=== PATIENT | female | born 2000 | race Caucasian/White ===

== ENCOUNTER 2020-04-22 20:38 | Emergency (ER) | payer OTHER ==
[2020-04-22] MEDS ORDERED: ACETAMINOPHEN 325 MG TABLET PO ONE (20:53)
--- NOTE | 2020-04-22 20:55 | ER Document Report ---
ED Medical Screen (RME) - General Chief Complaint: Foot Injury Stated Complaint: RIGHT FOOT LACERATION Time Seen by Provider: 04/22/20 20:47 Mode of Arrival: Ambulatory Information source: Patient Notes: 20-year-old female presented to ED for 3 cm laceration to the posterior ankle. She states a piece of metal in the door snapped up and cut her posterior ankle at 655 tonight. She states her last menstrual. Started on 04/17/2020. Her last tetanus was 7 years ago. She does not smoke she occasionally drinks does not use any drugs. She does have a history of a fractured arm in the past and asthma. She states her pain is sharp and a level 2 out of 5. She is alert oriented respirations regular nonlabored speaking in full sentences. She did very requested Tylenol and I did give her Tylenol. I have greeted and performed a rapid initial assessment of this patient. A comprehensive ED assessment and evaluation of the patient, analysis of test results and completion of medical decision making process will be conducted by an additional ED providers. Physical Exam - Vital signs Vitals: Temp Pulse Resp BP Pulse Ox 98.8 F 82 15 145/77 H 99 04/22/20 20:42 04/22/20 20:42 04/22/20 20:42 04/22/20 20:42 04/22/20 20:42 Course - Vital Signs Vital signs: Temp Pulse Resp BP Pulse Ox 98.8 F 82 15 145/77 H 99 04/22/20 20:42 04/22/20 20:42 04/22/20 20:42 04/22/20 20:42 04/22/20 20:42
--- NOTE | 2020-04-22 22:10 | RADIOLOGY REPORT (SQ) ---
EXAM DESCRIPTION: XR ANKLE 3 OR MORE VIEWS COMPLETED DATE/TME: 04/22/2020 20:52 CLINICAL HISTORY: 20 years, Female, Laceration posterior ankle EXAM DESCRIPTION: CLINICAL HISTORY: Laceration posterior ankle COMPARISON: None FINDINGS: 3 view(s) submitted. Findings are concerning for fracture of the cuboid bone, comminuted, best seen on the lateral view. No other fracture or dislocation is identified. Bone marrow attenuation is unremarkable. No radiopaque foreign body is identified. IMPRESSION: Probable cuboid fracture. Follow-up is recommended.
[2020-04-23] MEDS ORDERED: DIPH/PERTUSS(ACELL)/TETANUS VAC/PF 0.5 ML SYR (>=10YO) IM ONE (00:53)
[2020-04-23] MEDS ORDERED: LIDOCAINE 1%/EPINEPHRINE INJ 20 ML VIAL INJ ONE (01:00)
--- NOTE | 2020-04-23 01:00 | ER Document Report ---
HPI - HPI Time Seen by Provider: 04/22/20 20:47 Pain Level: 2 Context: Patient is a 20-year-old female that comes emergency department for chief complaint of a laceration to the right posterior ankle. She states that she was struck by a swinging door, she states there was a metal part on the door which was sticking up and it caught her in the ankle causing a laceration and bleeding. She denies any other injuries. She states the area is sore when she walks but she denies any other complaints. She denies any other injury. Last tetanus was 7 years ago. She just completed her last menstrual cycle. She denies any medical problems, only past medical history reported is orthopedic surgery on her arm. - REPRODUCTIVE LMP: 04/17/20 - DERM Skin Color: Normal Past Medical History - General Information source: Patient - Social History Smoking Status: Never Smoker Frequency of alcohol use: None Drug Abuse: None Lives with: Family Family History: Reviewed & Not Pertinent Pulmonary Medical History: Reports: Hx Asthma - Immunizations Immunizations up to date: No Hx Diphtheria, Pertussis, Tetanus Vaccination: Yes Vertical Provider Document - CONSTITUTIONAL General Appearance: WD/WN, No Apparent Distress - HEENT HEENT: Atraumatic, Normocephalic - NECK Neck: Normal Inspection - RESPIRATORY Respiratory: Breath Sounds Normal, No Respiratory Distress - CARDIOVASCULAR Cardiovascular: Regular Rate, Regular Rhythm - GI/ABDOMEN Gastrointestinal: Abdomen Soft, Abdomen Non-Tender. negative: Abdomen Tender - BACK Back: Normal Inspection - MUSCULOSKELETAL/EXTREMETIES Musculoskeletal/Extremeties: MAEW, FROM, Tender - There is a partial-thickness vertical laceration just adjacent to the Achilles area laterally on the right posterior ankle. This is approximately 3 cm in length. There is no surrounding swelling. Normal Power test, normal range of motion of the ankle, normal ambulation, normal capillary refill and sensation in the toes, normal dorsalis pedis. Unremarkable lower extremity otherwise. - NEURO Level of Consciousness: Awake, Alert, Appropriate Motor/Sensory: No Motor Deficit, No Sensory Deficit - DERM Integumentary: Warm, Dry, No Rash Course - Re-evaluation Re-evalutation: Patient with a partial-thickness laceration with no deficits, exam does not indicate injury of the Achilles or any concerning findings. X-ray shows possible fracture of the cuboid bone. However patient's exam does not suggest this at all, there is no swelling, there is no bony tenderness, the location of the injury does not indicate that this would have happened, patient states this may have happened in the past when she was cheerleading. Because patient's exam does not suggest this is acute patient was provided with a copy of the report and CD and she will follow-up with primary care in regards to this. Wound was cleaned, repaired, discussed care, follow-up, return precautions. Patient states appreciation and agreement. - Vital Signs Vital signs: Temp Pulse Resp BP Pulse Ox 98.8 F 82 15 145/77 H 99 04/22/20 20:42 04/22/20 20:42 04/22/20 20:42 04/22/20 20:42 04/22/20 20:42 Procedures - Laceration/Wound Repair Right ankle Wound length (cm): 3 Wound's Depth, Shape: Linear Laceration pre-procedure: Sterile PPE donned, Sterile drapes applied, Shur-Clens applied Anesthetic type: 1% Lidocaine w/epi Volume Anesthetic (mLs): 5 Wound explored: Clean, No foreign body removed Irrigated w/ Saline (mLs): 60 Wound Repaired With: Sutures Suture Size/Type: 4:0, Ethilon Number of Sutures: 5 Layer Closure?: No Post-procedure wound care: Sterile dressing applied Post-procedure NV exam normal: Yes Complications: No Discharge - Discharge Clinical Impression: Laceration of right ankle Qualifiers: Encounter type: initial encounter Qualified Code(s): S91.011A - Laceration without foreign body, right ankle, initial encounter Condition: Stable Disposition: HOME, SELF-CARE Instructions: Tetanus Immunization Given ([facility]) Additional Instructions: Your examination is reassuring, the wound has been closed with sutures. Keep clean, clean with soap and water, dab dry, apply clean dressing with topical antibiotic. Sutures need to be removed in 7 days at a medical facility. Avoid any significant physical activity open (running/jumping), I recommend that you avoid walking as much as possible and rest of the first couple of days to avoid breaking open the sutures. Your x-ray shows a possible cuboid fracture (a bone in your ankle/foot). However based on your examination this does not appear to be caused by tonight, you have been provided with an x-ray and your report, follow-up with primary care for additional monitoring and management of this. Return if you worsen including developing swelling, spreading redness, discolored discharge, developing pain, fever, or any other concerning symptoms. Forms: Return to Work
[2020-04-23 02:05] VITALS: BP 128/83
== END 2020-04-23 02:15 | disposition home or self-care (01) ==
LOC: ER 20:38
DX: S91.011A Laceration without foreign body, right ankle, initial encounter (principal); W20.8XXA Other cause of strike by thrown, projected or falling object, initial encounter; Y99.0 Civilian activity done for income or pay; J45.909 Unspecified asthma, uncomplicated; Z23 Encounter for immunization
CPT/HCPCS: 99283; 90471; 73610; 90715; 12002; J3490